=== PATIENT | female | born 1990 ===

== ENCOUNTER 2016-10-30 15:37 | Inpatient (IN) ==
[2016-10-30] MEDS ORDERED: DINOPROSTONE VAG GEL 10 MG SYRINGE VAG ONE (17:29)
[2016-10-30] MEDS: LACTATED RINGERS 1,000 ML IV SCH ×2 (17:30→20:17)
[2016-10-30] MEDS ORDERED: ONDANSETRON 4 MG/2 ML VIAL IV PRN (18:09)
[2016-10-30] MEDS ORDERED: DINOPROSTONE 20 MG VAG SUPP VAG ONE (18:13)
--- NOTE | 2016-10-30 18:20 | OB/GYN History & Physical ---
History of Present Illness Chief complaint: In for elective induction of labor due to term . History of present illness: Ms. Lucas is a 26 year old female who is a 4 para 2 AB 1 living 2. Her LISA is 10/29/2016 for estimated gestational age of 40 weeks and 1 day. The patient presents for elective induction of labor due to term . The risk and benefits of been thoroughly discussed with this patient and significant other, plan of care has been discussed with Dr. Rivas and all parties are in agreement plan. The patient received her care through the [facility] and the [facility]. She received routine care and her course was uneventful. labs: she is O+ , rubella is immune, RPR is nonreactive, hepatitis B negative, HIV negative, GBS culture is negative. Review of systems negative with exception of above. The patient has had 2 previous vaginal deliveries and her largest infant weighed 8 pounds and 6 ounces. She reported no complications with either of her pregnancies. 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 - Constitutional Vitals: Vital Signs Temp Pulse Resp BP 10/30/16 18:09 98.1 F 74 18 127/67 General appearance: no acute distress - Antepartum / Post Antepartum Exam Cervix - Dilatation: 1 cm Effacement: 50% Station: -2 Rupture: Intact Presentation: Vertex Heart Rate: 130s-140 [place]: Irritability Breast: bilateral: normal Abdomen obstetrics: Present: bowel sounds normal Vagina: Present: normal moisture Uterus exam: Present: enlarged Anus/Rectum: Present: normal perianal skin - Respiratory Respiratory exam: Present: clear to auscultation bilaterally - Cardiovascular Cardiovascular exam: Present: regular rate and rhythm - GI/Abdominal GI/Abdominal exam: Present: normal bowel sounds, soft - Extremities Exam Extremities exam: Present: normal inspection - Back Exam Back exam: Present: normal inspection - Neurological Exam Neurological exam: Present: alert, oriented X3 - Psychiatric Psychiatric exam: Present: normal affect, normal mood - Skin Skin exam: Present: normal color, warm Assessment and Plan (1) Term Status: Acute Assessment and plan: Admit IV fluids IV Pitocin per protocol if indicated Prostin gel per protocol Epidural anesthesia if desired Artificial rupture membranes when appropriate Anticipate Current Visit: Yes Quality Measures - VTE Contraindication to Pharmacological VTE Prophylaxis: Clinical assessment deems Pt at low risk, no prophalaxis needed
[2016-10-30] MEDS ORDERED: OXYTOCIN/LR 20 UNIT/1,000 ML BAG IV SCH (18:30)
[2016-10-30 18:32] LABS: Basophils % 0.2 % (0.0-0.8); Eosinophils # 0.1 10*3/uL (0.0-0.87); Eosinophils % 0.6 % (0.00-10.9); Hematocrit 33.1 VOL% (35.7-47.0); Hemoglobin 11.4 GM/DL (12.0-16.0); Immature Granulocytes % 0.5 %; Immature Granulocytes Absolute 0.05 #; Lymphocytes # 1.6 10*3/uL (1.4-4.0); Lymphocytes % 15.4 % (21.3-54.2); Mean Corpuscular HGB Conc 34.4 GM/DL (32-36); Mean Corpuscular Hemoglobin 27 PG (27-34); Mean Corpuscular Volume 78.1 FL (87-102); Mean Platelet Volume 15.1 FL (9.6-12.0); Monocytes # 0.7 10*3/uL (0.11-0.8); Monocytes % 6.9 % (1.7-12.7); Neutrophils # 7.9 10*3/uL (1.4-7.4); Neutrophils % 76.4 % (38.7-73.9); Platelet Count 126 T/CUMM (130-400); Red Blood Count 4.24 MC/CUMM (3.8-5.5); Red Cell Distribution Width 13.6 % (9.3-17.3); White Blood Count 10.3 T/CUMM (4-12)
[2016-10-30 19:03] LABS: Apearance,Urine CLEAR (Clear); Bacteria,Urine Occasional /HPF (Few); Bilirubin,Urine Negative (Negative); Blood, Urine Moderate mg/dL (Negative); Glucose,Urine (UA) Negative (Negative); Ketones,Urine Negative (Negative); Mucus,Urine Occasional /LPF (Occasional); Nitrite,Urine Negative (Negative); Protein,Urine Negative; RBC,Urine 3 /HPF (0-4); Squamous Epithelial Cell,Urine Occasional /HPF (0-10); Urine Color Straw (Yellow); Urine Specific Gravity 1.009 (1.001-1.035); Urine Urobilinogen < 2.0 EU/DL (0.2-1.0); WBC,Urine 7 /HPF (0-6)
[2016-10-30] MEDS ORDERED: MEPERIDINE 50 MG/1 ML VIAL IV PRN (21:01)
[2016-10-30] MEDS ORDERED: fentaNYL 2 MCG/ROPIV 0.2% EPID 150 ML EPIDURAL SCH (23:18)
[2016-10-30] MEDS ORDERED: diphenhydrAMINE 50 MG/1 ML VIAL IV PRN ×2 (23:18)
[2016-10-30] MEDS ORDERED: ePHEDrine 50 MG/ML AMP IV PRN (23:18)
[2016-10-30] MEDS ORDERED: PROMETHAZINE 25 MG/1 ML VIAL IM ONE (23:18)
[2016-10-30] MEDS ORDERED: ONDANSETRON 4 MG/2 ML VIAL IV ONE (23:18)
[2016-10-30] MEDS ORDERED: hydrOXYzine HCL 25 MG/1 ML VIAL IM PRN (23:18)
[2016-10-30] MEDS ORDERED: CITRIC ACID/SODIUM CITRATE 30 ML UDCUP PO ONE (23:22)
[2016-10-30] MEDS ORDERED: FAMOTIDINE 20 MG/2 ML VIAL IV ONE (23:23)
[2016-10-31 01:02] LABS: Apearance,Urine CLEAR (Clear); Bilirubin,Urine Negative (Negative); Blood, Urine Negative (Negative); Glucose,Urine (UA) Negative (Negative); Ketones,Urine Negative (Negative); Mucus,Urine Occasional /LPF (Occasional); Nitrite,Urine Negative (Negative); Protein,Urine Negative; Squamous Epithelial Cell,Urine Occasional /HPF (0-10); Urine Color Yellow (Yellow); Urine Specific Gravity 1.013 (1.001-1.035); Urine Urobilinogen < 2.0 EU/DL (0.2-1.0); WBC,Urine 2 /HPF (0-6)
[2016-10-31] MEDS: LACTATED RINGERS 1,000 ML IV SCH (02:15)
[2016-10-31] MEDS ORDERED: METHYLERGONOVINE 0.2 MG/1 ML AMP ONE (07:10)
--- NOTE | 2016-10-31 07:25 | Event Note ---
Delivery note Admitted and received prostaglandin gel on the evening of the Spontaneous rupture membranes clear fluid on the Epidural anesthetic External monitoring heart tones category 1 Stage II Spontaneous delivery of a female infant at 7:14 AM Apgars 9 9 Cord blood and cord gas obtained weight is pending Stage III 3 cord vessels Spontaneous liver the placenta Mother stable No lacerations were noted Estimated blood loss was less than 250 cc
[2016-10-31] MEDS ORDERED: WITCH HAZEL PADS 100/JAR TOP PRN (07:26)
[2016-10-31] MEDS ORDERED: OXYTOCIN/LR 20 UNIT/1,000 ML BAG IV ONE (07:26)
[2016-10-31] MEDS ORDERED: ONDANSETRON 4 MG/2 ML VIAL IV PRN (07:26)
[2016-10-31] MEDS ORDERED: oxyCODONE/ACETAMINOPHEN 5-325 MG TABLET PO PRN (07:26)
[2016-10-31] MEDS ORDERED: ACETAMINOPHEN 325 MG TABLET PO PRN (07:26)
[2016-10-31] MEDS ORDERED: HYDROCORTISONE 2.5% RECTAL CREAM 30 GM TUBE TOP PRN (07:26)
[2016-10-31] MEDS ORDERED: LANOLIN 50% CREAM 0.3 OZ TUBE TOP PRN (07:26)
[2016-10-31] MEDS ORDERED: BENZOCAINE 20%/MENTHOL 0.5% SPRAY 56 GM CAN TOP PRN (07:26)
[2016-10-31] MEDS ORDERED: BISACODYL 10 MG SUPP RECTAL PRN (07:26)
[2016-10-31] MEDS ORDERED: RHO(D) IMMUNE GLOBULIN 300 MCG SYRINGE IM ONE (08:00)
[2016-10-31] MEDS ORDERED: DIPH/TET/ACEL PERT BOOSTER VACCINE 0.5 ML VIAL IM ONE (08:00)
[2016-10-31] MEDS ORDERED: MEASLES/MUMPS/RUBELLA VACCINE 0.5 ML VIAL SUBCUT ONE (08:00)
[2016-10-31] MEDS: IBUPROFEN 800 MG TABLET PO PRN ×2 (11:25→16:58)
[2016-10-31] MEDS: oxyCODONE/ACETAMINOPHEN 5-325 MG TABLET PO PRN ×2 (11:26→16:59)
--- NOTE | 2016-10-31 15:18 | Anesthesia Post-Op ---
Anesthesia Post OP - Post Ansesthetic Evaluation Patient seen in post op: Yes Resp: within normal limits CV: within normal limits Mental: within normal limits Temp: within normal limits [id number]: within normal limits Nausea and Vomiting: within normal limits Pain: within normal limits
[2016-10-31] MEDS: DOCUSATE SODIUM 100 MG CAPSULE PO SCH (20:40)
[2016-11-01] MEDS: oxyCODONE/ACETAMINOPHEN 5-325 MG TABLET PO PRN ×2 (00:05→16:53)
[2016-11-01] MEDS: IBUPROFEN 800 MG TABLET PO PRN ×2 (05:44→12:42)
[2016-11-01 06:07] LABS: Basophils % 0.3 % (0.0-0.8); Eosinophils # 0.1 10*3/uL (0.0-0.87); Eosinophils % 0.8 % (0.00-10.9); Hematocrit 29.6 VOL% (35.7-47.0); Immature Granulocytes % 0.5 %; Immature Granulocytes Absolute 0.05 #; Lymphocytes # 2.6 10*3/uL (1.4-4.0); Lymphocytes % 24.8 % (21.3-54.2); Mean Corpuscular HGB Conc 33.8 GM/DL (32-36); Mean Corpuscular Hemoglobin 27 PG (27-34); Mean Corpuscular Volume 79.1 FL (87-102); Mean Platelet Volume 14.6 FL (9.6-12.0); Monocytes # 0.7 10*3/uL (0.11-0.8); Monocytes % 6.4 % (1.7-12.7); Neutrophils # 7.1 10*3/uL (1.4-7.4); Neutrophils % 67.2 % (38.7-73.9); Platelet Count 112 T/CUMM (130-400); Red Blood Count 3.74 MC/CUMM (3.8-5.5); Red Cell Distribution Width 13.7 % (9.3-17.3); White Blood Count 10.6 T/CUMM (4-12)
[2016-11-01] MEDS: DOCUSATE SODIUM 100 MG CAPSULE PO SCH ×2 (09:32→09:40)
--- NOTE | 2016-11-01 11:12 | Progress Note ---
Family Medicine PN Sub Interval history: day #1 Status post vaginal Lungs clear cardiac exam benign Abdomen soft nontender uterus nice and firm Extremities well with no limits neurologic grossly intact Status post vaginal Discharge in a.m. Exam (Progress Note) - Constitutional Vitals: Period Temp Pulse Resp BP Sys/[place] Pulse Ox Last 24 Hr 96.6 F-98.0 F 67-88 17-20 112-129/59-83 86-98 Results - Labs CBC & BMP: 11/01/16 05:28 Quality Measures - VTE Contraindication to Pharmacological VTE Prophylaxis: Clinical assessment deems Pt at low risk, no prophalaxis needed
--- NOTE | 2016-11-01 11:13 | Discharge Summary ---
Hospital Course - Hospital Course Hospital Course: day #2 Status post vaginal Lungs clear, cardiac exam benign Uterus is firm, abdomen is soft and nontender Extremities well with no limits neurologic grossly intact Status post vaginal We will discharge in a.m. Discharge Plan - Discharge Medications No Action Multivitamin () [ Vitamin] 1 caplet PO DAILY - Follow Up or Referral - Forms/Instructions Exam - Constitutional Vitals: Period Temp Pulse Resp BP Sys/[place] Pulse Ox Last 24 Hr 96.6 F-98.0 F 67-88 17-20 112-129/59-83 86-98 Discharge Results Labs on day of discharge: Labs from last 24 hours 11/01/16 05:28 WBC 10.6 RBC 3.74 L Hgb 10.0 L Hct 29.6 L MCV 79.1 L MCH 27 MCHC 33.8 RDW 13.7 Plt Count 112 L MPV 14.6 H Neut % (Auto) 67.2 Lymph % (Auto) 24.8 [place] % (Auto) 6.4 Eos % (Auto) 0.8 Baso % (Auto) 0.3 Neut # (Auto) 7.1 Lymph # (Auto) 2.6 [place] # (Auto) 0.7 Eos # (Auto) 0.1 Baso # (Auto) 0.0 Immature Gran % 0.5 Nucleated RBC % 0.0 Immature Gran # 0.05 Nucleated RBCs # 0.00 DS: Provider Date of admission: 10/30/16 18:09 Primary care physician: Angelika Estrada MD Attending physician on admission: Jan Rivas MD Consults: 10/30/16 18:09 Consult to Anesthesiology [CONS] Routine Consulting Provider: Reason for Anesthesiology: Epidural Consult Comment: Epidural for pain managment 10/31/16 07:26 Consult to .Net Programmer [CONS] Routine Consult .Net Programmer: Breast Feeding Discharging clinician: Jan Rivas MD
--- NOTE | 2016-11-01 11:14 | Discharge Summary ---
Hospital Course - Hospital Course Hospital Course: day #2 Status post vaginal Lungs clear, cardiac exam benign Uterus is firm, abdomen is soft and nontender Extremities well with no limits neurologic grossly intact Status post vaginal We will discharge in a.m. Discharge Plan - Discharge Data Condition at Discharge: Stable Discharge Diet: advance to your usual diet Activity: resume usual activities as tolerated Weight Bearing at Discharge: weight bear as tolerated Driving: no restrictions Contact your physician if you experience:: fever over 101, Shortness of breath, Bleeding - Discharge Medications No Action Multivitamin () [ Vitamin] 1 caplet PO DAILY - Follow Up or Referral - Forms/Instructions Exam - Constitutional Vitals: Period Temp Pulse Resp BP Sys/[place] Pulse Ox Last 24 Hr 96.6 F-98.0 F 67-88 17-20 112-129/59-83 86-98 Discharge Results Labs on day of discharge: Labs from last 24 hours 11/01/16 05:28 WBC 10.6 RBC 3.74 L Hgb 10.0 L Hct 29.6 L MCV 79.1 L MCH 27 MCHC 33.8 RDW 13.7 Plt Count 112 L MPV 14.6 H Neut % (Auto) 67.2 Lymph % (Auto) 24.8 [place] % (Auto) 6.4 Eos % (Auto) 0.8 Baso % (Auto) 0.3 Neut # (Auto) 7.1 Lymph # (Auto) 2.6 [place] # (Auto) 0.7 Eos # (Auto) 0.1 Baso # (Auto) 0.0 Immature Gran % 0.5 Nucleated RBC % 0.0 Immature Gran # 0.05 Nucleated RBCs # 0.00 DS: Provider Date of admission: 10/30/16 18:09 Primary care physician: Angelika Estrada MD Attending physician on admission: Jan Rivas MD Consults: 10/30/16 18:09 Consult to Anesthesiology [CONS] Routine Consulting Provider: Reason for Anesthesiology: Epidural Consult Comment: Epidural for pain managment 10/31/16 07:26 Consult to Roller Print Tender [CONS] Routine Consult Roller Print Tender: Breast Feeding Discharging clinician: Jan Rivas MD
[2016-11-02] MEDS: IBUPROFEN 800 MG TABLET PO PRN
[2016-11-02] MEDS: oxyCODONE/ACETAMINOPHEN 5-325 MG TABLET PO PRN (04:00)
[2016-11-02] MEDS: DOCUSATE SODIUM 100 MG CAPSULE PO SCH ×2 (09:21)
[2016-11-02 09:51] VITALS: BP 136/84
== END 2016-11-02 12:30 | disposition home or self-care (01) | DRG 560 ==
LOC: N.LDOUT 15:37 → N.LD 15:51 → N.OB 10-31 09:07
PROVIDERS: ADMIT Obstetrics & Gynecology; ATTEND Obstetrics & Gynecology

== ENCOUNTER 2018-10-06 16:02 | Inpatient (IN) ==
[2018-10-06] MEDS ORDERED: hydrALAZINE 20 MG/1 ML VIAL IV ONE ×4 (16:46→23:10)
[2018-10-06 16:49] LABS: Basophils % 0.4 % (0.0-0.8); Eosinophils % 0.5 % (0.00-10.9); Hematocrit 34.9 VOL% (35.7-47.0); Hemoglobin 11.6 GM/DL (12.0-16.0); Immature Granulocytes % 0.5 %; Immature Granulocytes Absolute 0.04 #; Lymphocytes # 1.9 10*3/uL (1.4-4.0); Lymphocytes % 24.5 % (21.3-54.2); Mean Corpuscular HGB Conc 33.2 GM/DL (32-36); Mean Corpuscular Volume 81.7 FL (87-102); Monocytes % 8.3 % (1.7-12.7); Neutrophils % 65.8 % (38.7-73.9); Platelet Count 95 T/CUMM (130-400); Red Blood Count 4.27 MC/CUMM (3.8-5.5); Red Cell Distribution Width 13.1 % (9.3-17.3); White Blood Count 7.8 T/CUMM (4-12)
[2018-10-06 16:57] LABS: INR 0.8; PT Patient Result 8.8 SECS; Partial Thromboplastin Time 26.4 SECS (0-40)
[2018-10-06 17:06] LABS: Alanine Aminotransferase 13 U/L (13-56); Albumin 2.4 G/DL (3.4-5.0); Alkaline Phosphatase 214 U/L (45-117); Aspartate Amino Transferase 22 U/L (0-37); Bilirubin,Direct < 0.100 MG/DL (0.0-0.20); Bilirubin,Total < 0.39 MG/DL (0.2-1.0); Blood Urea Nitrogen 14 MG/DL (7-18); Calcium 8.2 MG/DL (8.5-10.1); Glucose 69 MG/DL (74-106); Osmolality,Calculated 271.8 MOS/KG (273-304); Total Protein 6.3 G/DL (6.4-8.3); Uric Acid 5.7 MG/DL (2.6-6.0)
[2018-10-06] MEDS ORDERED: LABETALOL 200 MG TABLET ONE (17:14)
[2018-10-06] MEDS ORDERED: LABETALOL 200 MG TABLET PO SCH (17:30)
[2018-10-06 18:11] LABS: Apearance,Urine CLEAR (Clear); Bilirubin,Urine Negative (Negative); Blood, Urine Negative (Negative); Glucose,Urine (UA) Negative (Negative); Ketones,Urine Negative (Negative); Nitrite,Urine Negative (Negative); Protein,Urine Negative; RBC,Urine 2 /HPF (0-4); Urine Color Straw (Yellow); Urine Specific Gravity 1.003 (1.001-1.035); Urine Urobilinogen < 2.0 EU/DL (0.2-1.0); WBC,Urine 1 /HPF (0-6)
[2018-10-06] MEDS: ACETAMINOPHEN 500 MG TABLET PO PRN (21:54)
[2018-10-07] MEDS ORDERED: ONDANSETRON 4 MG/2 ML VIAL IM ONE (00:05)
[2018-10-07] MEDS ORDERED: MEPERIDINE 50 MG/1 ML VIAL IM ONE (00:05)
[2018-10-07] MEDS ORDERED: MEPERIDINE 25 MG/1 ML VIAL ONE (00:22)
[2018-10-07] MEDS ORDERED: ONDANSETRON 4 MG/2 ML VIAL ONE (00:23)
[2018-10-07] MEDS ORDERED: MEPERIDINE 25 MG/1 ML VIAL IM ONE (00:30)
[2018-10-07] MEDS ORDERED: MEPERIDINE 25 MG/1 ML VIAL IM PRN (04:04)
[2018-10-07] MEDS ORDERED: ONDANSETRON 4 MG/2 ML VIAL IV PRN (04:04)
[2018-10-07] MEDS: LACTATED RINGERS 1,000 ML IV SCH ×2 (04:30→09:11)
[2018-10-07] MEDS ORDERED: OXYTOCIN/LR 20 UNIT/1,000 ML BAG IV SCH (06:00)
[2018-10-07] MEDS ORDERED: CITRIC ACID/SODIUM CITRATE 30 ML UDCUP PO ONE (07:32)
[2018-10-07] MEDS ORDERED: ePHEDrine 50 MG/ML AMP IV PRN ×2 (07:32)
[2018-10-07] MEDS ORDERED: diphenhydrAMINE 50 MG/1 ML VIAL IV PRN ×2 (07:32)
[2018-10-07] MEDS ORDERED: ONDANSETRON 4 MG/2 ML VIAL IV ONE (07:32)
[2018-10-07] MEDS ORDERED: NALOXONE 0.4 MG/ML VIAL IV PRN (07:32)
[2018-10-07] MEDS ORDERED: FAMOTIDINE 20 MG/2 ML VIAL IV ONE (07:32)
[2018-10-07] MEDS ORDERED: hydrOXYzine HCL 25 MG/1 ML VIAL IM PRN (07:32)
[2018-10-07] MEDS ORDERED: PROMETHAZINE 25 MG/1 ML VIAL IM ONE (07:32)
[2018-10-07] MEDS: ACETAMINOPHEN 500 MG TABLET PO PRN (07:39)
[2018-10-07] MEDS ORDERED: fentaNYL 2 MCG/ROPIV 0.2% EPID 100 ML EPIDURAL SCH (08:00)
[2018-10-07] MEDS ORDERED: LABETALOL 200 MG TABLET PO SCH ×3 (09:00→21:00)
[2018-10-07 09:53] LABS: Apearance,Urine CLEAR (Clear); Bacteria,Urine Occasional /HPF (Few); Bilirubin,Urine Negative (Negative); Blood, Urine Negative (Negative); Glucose,Urine (UA) Negative (Negative); Ketones,Urine Negative (Negative); Mucus,Urine Many /LPF (Occasional); Nitrite,Urine Negative (Negative); Protein,Urine 100 MG/DL; RBC,Urine 1 /HPF (0-4); Squamous Epithelial Cell,Urine Occasional /HPF (0-10); Urine Color Yellow (Yellow); Urine Urobilinogen < 2.0 EU/DL (0.2-1.0); WBC,Urine 1 /HPF (0-6)
[2018-10-07] MEDS ORDERED: miSOPROStol 200 MCG TABLET ONE (14:24)
[2018-10-07] MEDS ORDERED: METHYLERGONOVINE 0.2 MG/1 ML AMP ONE (14:25)
[2018-10-07] MEDS ORDERED: TRANEXAMIC ACID 1,000 MG/10 ML VIAL ONE (14:25)
[2018-10-07] MEDS ORDERED: OXYTOCIN/LR 20 UNIT/1,000 ML BAG IV ONE (14:25)
[2018-10-07] MEDS ORDERED: CARBOPROST TROMETHAMINE 250 MCG/ML AMP IM ONE (14:26)
[2018-10-07] MEDS ORDERED: RHO(D) IMMUNE GLOBULIN 300 MCG SYRINGE IM ONE (18:05)
[2018-10-07] MEDS ORDERED: MEASLES/MUMPS/RUBELLA VACCINE 0.5 ML VIAL SUBCUT ONE (18:05)
[2018-10-07] MEDS ORDERED: oxyCODONE/ACETAMINOPHEN 5-325 MG TABLET PO PRN ×2 (18:05)
[2018-10-07] MEDS ORDERED: LANOLIN 50% CREAM 0.3 OZ TUBE TOP PRN (18:05)
[2018-10-07] MEDS ORDERED: BENZOCAINE 20%/MENTHOL 0.5% SPRAY 56 GM CAN TOP PRN (18:05)
[2018-10-07] MEDS ORDERED: ACETAMINOPHEN 325 MG TABLET PO PRN (18:05)
[2018-10-07] MEDS ORDERED: WITCH HAZEL PADS 100/JAR TOP PRN (18:05)
[2018-10-07] MEDS ORDERED: DIPH/TET/ACEL PERT BOOSTER VACCINE 0.5 ML VIAL IM ONE (18:05)
[2018-10-07] MEDS ORDERED: BISACODYL 10 MG SUPP RECTAL PRN (18:05)
[2018-10-07] MEDS ORDERED: ACETAMINOPHEN/CODEINE 300-30 MG TABLET PO PRN (18:05)
[2018-10-07] MEDS ORDERED: HYDROCORTISONE 2.5% RECTAL CREAM 30 GM TUBE TOP PRN (18:05)
[2018-10-07] MEDS: DOCUSATE SODIUM 100 MG CAPSULE PO SCH (22:07)
[2018-10-07] MEDS: IBUPROFEN 800 MG TABLET PO PRN (22:11)
[2018-10-08 05:38] LABS: Basophils % 0.3 % (0.0-0.8); Eosinophils # 0.1 10*3/uL (0.0-0.87); Eosinophils % 0.6 % (0.00-10.9); Hematocrit 29.7 VOL% (35.7-47.0); Hemoglobin 10.1 GM/DL (12.0-16.0); Immature Granulocytes % 0.3 %; Immature Granulocytes Absolute 0.04 #; Lymphocytes # 2.7 10*3/uL (1.4-4.0); Lymphocytes % 23.7 % (21.3-54.2); Mean Corpuscular Volume 81.8 FL (87-102); Monocytes % 6.7 % (1.7-12.7); Neutrophils % 68.4 % (38.7-73.9); Red Blood Count 3.63 MC/CUMM (3.8-5.5); Red Cell Distribution Width 13.2 % (9.3-17.3); White Blood Count 11.5 T/CUMM (4-12)
[2018-10-08 05:51] LABS: Platelet Count 79 T/CUMM (130-400)
[2018-10-08 05:57] LABS: Hypochromasia 1+; Platelet Estimate Decreased
[2018-10-08] MEDS: DOCUSATE SODIUM 100 MG CAPSULE PO SCH (09:08)
[2018-10-08] MEDS: IBUPROFEN 800 MG TABLET PO PRN ×2 (11:16→17:40)
[2018-10-08] MEDS ORDERED: SUMAtriptan 6 MG/0.5 ML VIAL SUBCUT ONE (18:09)
[2018-10-08] MEDS ORDERED: BUTALBITAL/ACETAMIN/CAFFEINE 50-325-40 MG TABLET PO ONE (18:11)
[2018-10-08] MEDS ORDERED: SODIUM CHLORIDE 0.9% 500 ML IV ONE (18:13)
[2018-10-09] MEDS: BUTALBITAL/ACETAMIN/CAFFEINE 50-325-40 MG TABLET PO SCH ×4 (00:12→17:41)
[2018-10-09] MEDS: DOCUSATE SODIUM 100 MG CAPSULE PO SCH ×2 (08:16→20:32)
[2018-10-09] MEDS ORDERED: hydrALAZINE 20 MG/1 ML VIAL ONE (12:43)
[2018-10-09] MEDS ORDERED: hydrALAZINE 20 MG/1 ML VIAL IV ONE (12:45)
[2018-10-09] MEDS: IBUPROFEN 800 MG TABLET PO PRN (15:44)
[2018-10-10] MEDS: DOCUSATE SODIUM 100 MG CAPSULE PO SCH ×2 (08:26→21:13)
[2018-10-10] MEDS ORDERED: FUROSEMIDE 40 MG/4 ML VIAL IV ONE (10:31)
[2018-10-10] MEDS ORDERED: FUROSEMIDE 20 MG/2 ML VIAL IV ONE (14:00)
[2018-10-10] MEDS: IBUPROFEN 800 MG TABLET PO PRN (21:13)
[2018-10-11 08:36] VITALS: BP 140/89
[2018-10-11] MEDS: DOCUSATE SODIUM 100 MG CAPSULE PO SCH (08:53)
== END 2018-10-11 12:20 | disposition home or self-care (01) | DRG 807 ==
LOC: N.LDOUT 16:02 → N.LD 16:04 → N.OB 10-07 18:00
PROVIDERS: ADMIT Obstetrics & Gynecology; ATTEND Obstetrics & Gynecology

== ENCOUNTER 2021-09-11 17:14 | Inpatient (IN) ==
[2021-09-11 21:00] LABS: Basophils % 0.1 % (0.0-0.8); Eosinophils % 0.1 % (0.00-10.9); Hematocrit 39.7 VOL% (35.7-47.0); Hemoglobin 13.2 GM/DL (12.0-16.0); Immature Granulocytes % 0.5 %; Immature Granulocytes Absolute 0.09 #; Lymphocytes # 0.6 10*3/uL (1.4-4.0); Lymphocytes % 3.3 % (21.3-54.2); Mean Corpuscular HGB Conc 33.2 GM/DL (32-36); Mean Corpuscular Volume 82.7 FL (87-102); Mean Platelet Volume 12.3 FL (9.6-12.0); Monocytes # 1.6 10*3/uL (0.11-0.8); Monocytes % 8.5 % (1.7-12.7); Neutrophils % 87.5 % (38.7-73.9); Platelet Count 133 T/CUMM (130-400); Red Cell Distribution Width 13.1 % (9.3-17.3); White Blood Count 18.4 T/CUMM (4-12)
[2021-09-11 21:12] LABS: Calcium 8.2 MG/DL (8.5-10.1); Osmolality,Calculated 274.7 MOS/KG (273-304); Potassium 3.7 MMOL/L (3.5-5.1)
[2021-09-11] MEDS ORDERED: ZALEPLON 5 MG CAPSULE PO PRN (21:15)
[2021-09-11] MEDS ORDERED: MORPHINE 2 MG/1 ML SYRINGE IV PRN (21:15)
[2021-09-11] MEDS ORDERED: hydrALAZINE 20 MG/1 ML VIAL IV PRN (21:15)
[2021-09-11] MEDS ORDERED: ONDANSETRON 4 MG/2 ML VIAL IV PRN (21:15)
[2021-09-11] MEDS ORDERED: diphenhydrAMINE CAP 25 MG CAPSULE PO PRN (21:15)
[2021-09-11] MEDS ORDERED: GLUCAGON 1 MG VIAL IM PRN (21:15)
[2021-09-11] MEDS ORDERED: PROMETHAZINE 25 MG TABLET PO PRN (21:15)
[2021-09-11] MEDS ORDERED: DEXTROSE 10% 250 ML BAG IV PRN (21:15)
[2021-09-11] MEDS ORDERED: guaiFENesin/DM ER 600-30 MG TABLET PO PRN (21:15)
[2021-09-11] MEDS ORDERED: PROMETHAZINE 25 MG/1 ML VIAL IM PRN (21:15)
[2021-09-11] MEDS ORDERED: NICOTINE 21 MG/24 HR PATCH TRANSDERM PRN (21:15)
[2021-09-11 21:34] LABS: Lymphocytes 15 % (20-55)
[2021-09-11 21:35] LABS: Platelet Estimate Decreased; Total Cells Counted 100
[2021-09-11] MEDS: HEPARIN 5,000 UNIT/1 ML VIAL SUBCUT SCH (21:46)
[2021-09-11] MEDS: cefTRIAXone 1,000 MG in SODIUM CHLORIDE 0.9% 100 ML IV SCH (21:46)
[2021-09-11] MEDS: SODIUM CHLORIDE 0.9% 1,000 ML IV SCH (21:52)
[2021-09-12] MEDS: ACETAMINOPHEN 325 MG TABLET PO PRN ×2 (03:38→16:54)
[2021-09-12] MEDS ORDERED: BUTALBITAL/ACETAMIN/CAFFEINE 50-325-40 MG TABLET PO ONE (05:38)
[2021-09-12 06:07] LABS: Bacteria,Urine Occasional /HPF (Few); Mucus,Urine Occasional /LPF (Occasional); RBC,Urine 7 /HPF (0-4); Squamous Epithelial Cell,Urine Occasional /HPF (0-10)
[2021-09-12] MEDS: SODIUM CHLORIDE 0.9% 1,000 ML IV SCH ×2 (06:07→15:46)
[2021-09-12 06:08] LABS: Glucose,Urine (UA) 100 mg/dL (Negative); Protein,Urine 100 mg/dL (Negative); Urine Appearance Clear (Clear); Urine Color Dark yellow (Yellow)
[2021-09-12 06:08] LABS: Basophils % 0.1 % (0.0-0.8); Eosinophils % 0.1 % (0.00-10.9); Hematocrit 37.1 VOL% (35.7-47.0); Hemoglobin 12.2 GM/DL (12.0-16.0); Immature Granulocytes % 0.6 %; Immature Granulocytes Absolute 0.11 #; Lymphocytes # 0.7 10*3/uL (1.4-4.0); Lymphocytes % 4.1 % (21.3-54.2); Mean Corpuscular HGB Conc 32.9 GM/DL (32-36); Mean Corpuscular Volume 82.8 FL (87-102); Mean Platelet Volume 13.3 FL (9.6-12.0); Monocytes # 2.1 10*3/uL (0.11-0.8); Monocytes % 12.1 % (1.7-12.7); Platelet Count 122 T/CUMM (130-400); Red Blood Count 4.48 MC/CUMM (3.8-5.5); Red Cell Distribution Width 12.9 % (9.3-17.3)
[2021-09-12 06:09] LABS: Bilirubin,Urine Small mg/dL (Negative); Blood, Urine Small mg/dL (Negative); Ketones,Urine Trace mg/dL (Negative); Nitrite,Urine Negative (Negative); Urine Urobilinogen >= 8.0 eU/dL (<2.0)
[2021-09-12 06:30] LABS: Calcium 8.1 MG/DL (8.5-10.1); Osmolality,Calculated 267.2 MOS/KG (273-304); Potassium 3.2 MMOL/L (3.5-5.1)
[2021-09-12 06:35] LABS: Band Neutrophils 1 % (0-10); Eosinophils 1 % (0-10); Hypochromia 1+; Lymphocytes 5 % (20-55); Total Cells Counted 100
[2021-09-12 06:36] LABS: Microcytosis 1+; Platelet Estimate Adequate
[2021-09-12] MEDS ORDERED: POTASSIUM CHLORIDE 20 MEQ TABLET PO ONE (08:30)
[2021-09-12] MEDS: HEPARIN 5,000 UNIT/1 ML VIAL SUBCUT SCH ×2 (09:32→20:51)
[2021-09-12] MEDS: PANTOPRAZOLE 40 MG TABLET PO SCH (09:32)
[2021-09-12] MEDS: DOCUSATE SODIUM 100 MG CAPSULE PO SCH ×2 (09:32→20:51)
[2021-09-12] MEDS: cefTRIAXone 1,000 MG in SODIUM CHLORIDE 0.9% 100 ML IV SCH (20:51)
[2021-09-13 05:19] LABS: Basophils % 0.1 % (0.0-0.8); Eosinophils % 0.2 % (0.00-10.9); Hematocrit 34.8 VOL% (35.7-47.0); Hemoglobin 11.6 GM/DL (12.0-16.0); Immature Granulocytes % 0.4 %; Immature Granulocytes Absolute 0.04 #; Lymphocytes # 1.3 10*3/uL (1.4-4.0); Lymphocytes % 12.3 % (21.3-54.2); Mean Corpuscular HGB Conc 33.3 GM/DL (32-36); Mean Corpuscular Volume 82.5 FL (87-102); Mean Platelet Volume 14.1 FL (9.6-12.0); Monocytes # 1.2 10*3/uL (0.11-0.8); Monocytes % 11.4 % (1.7-12.7); Neutrophils % 75.6 % (38.7-73.9); Platelet Count 145 T/CUMM (130-400); Red Blood Count 4.22 MC/CUMM (3.8-5.5); White Blood Count 10.6 T/CUMM (4-12)
[2021-09-13 05:55] LABS: Platelet Estimate Adequate
[2021-09-13 05:58] LABS: Osmolality,Calculated 273.7 MOS/KG (273-304); Potassium 3.5 MMOL/L (3.5-5.1)
[2021-09-13] MEDS: DOCUSATE SODIUM 100 MG CAPSULE PO SCH ×2 (08:16→21:30)
[2021-09-13] MEDS: PANTOPRAZOLE 40 MG TABLET PO SCH (08:16)
[2021-09-13] MEDS: SODIUM CHLORIDE 0.9% 1,000 ML IV SCH ×2 (08:17)
[2021-09-13] MEDS: HEPARIN 5,000 UNIT/1 ML VIAL SUBCUT SCH ×2 (08:17→21:30)
[2021-09-13] MEDS: cefTRIAXone 1,000 MG in SODIUM CHLORIDE 0.9% 100 ML IV SCH (21:30)
[2021-09-14] MEDS: SODIUM CHLORIDE 0.9% 1,000 ML IV SCH ×2 (01:01→03:11)
[2021-09-14 04:08] LABS: Basophils % 0.2 % (0.0-0.8); Eosinophils % 0.5 % (0.00-10.9); Hematocrit 37.2 VOL% (35.7-47.0); Hemoglobin 12.3 GM/DL (12.0-16.0); Immature Granulocytes % 0.5 %; Immature Granulocytes Absolute 0.04 #; Lymphocytes # 1.5 10*3/uL (1.4-4.0); Lymphocytes % 17.5 % (21.3-54.2); Mean Corpuscular HGB Conc 33.1 GM/DL (32-36); Mean Corpuscular Volume 82.5 FL (87-102); Mean Platelet Volume 13.3 FL (9.6-12.0); Monocytes # 1.2 10*3/uL (0.11-0.8); Monocytes % 13.7 % (1.7-12.7); Neutrophils % 67.6 % (38.7-73.9); Platelet Count 163 T/CUMM (130-400); Red Blood Count 4.51 MC/CUMM (3.8-5.5); Red Cell Distribution Width 12.8 % (9.3-17.3); White Blood Count 8.4 T/CUMM (4-12)
[2021-09-14 04:37] LABS: Calcium 8.2 MG/DL (8.5-10.1); Potassium 3.5 MMOL/L (3.5-5.1)
[2021-09-14 05:24] LABS: Platelet Estimate Adequate
[2021-09-14] MEDS: DOCUSATE SODIUM 100 MG CAPSULE PO SCH (09:24)
[2021-09-14] MEDS: PANTOPRAZOLE 40 MG TABLET PO SCH (09:24)
[2021-09-14] MEDS: HEPARIN 5,000 UNIT/1 ML VIAL SUBCUT SCH (09:25)
[2021-09-14 12:05] VITALS: BP 125/72
== END 2021-09-14 16:18 | disposition home or self-care (01) | DRG 463 ==
LOC: SUATTDRO 20:11 → N.3E 20:11
PROVIDERS: ADMIT Internal Medicine; ATTEND Family Medicine